=== PATIENT | female | born 1970 | race Caucasian/White ===

== ENCOUNTER 2016-09-13 10:48 | Emergency (ER) | payer OTHER ==
[2016-09-13 11:12] VITALS: BP 131/72
[2016-09-13] MEDS ORDERED: Ketorolac 60 MG/2 ML SDV IM ONE (11:41)
[2016-09-13] MEDS ORDERED: Cyclobenzaprine 10 MG Tab PO ONE (11:42)
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
--- NOTE | 2016-09-13 12:53 | CR ---
Ribs 2V w Chest Lt INDICATION: pain in left lateral rib cage. FINDINGS: Normal heart size. Slight fibrosis or atelectasis left lung base. Postoperative changes lo wer cervical spine. Surgical clips right upper quadrant. Dedicated left rib views are negative.
== END 2016-09-13 12:40 | disposition home or self-care (01) ==
LOC: JP.ED 10:48
DX: S29.9XXA Unspecified injury of thorax, initial encounter (principal); J45.909 Unspecified asthma, uncomplicated; Z98.890 Other specified postprocedural states; Z90.49 Acquired absence of other specified parts of digestive tract; Z79.899 Other long term (current) drug therapy; Z88.1 Allergy status to other antibiotic agents; W22.8XXA Striking against or struck by other objects, initial encounter; Y92.814 Boat as the place of occurrence of the external cause
CPT/HCPCS: 71101; 96372; 99285; A9270; J1885